=== PATIENT | female | born 1990 ===

== ENCOUNTER 2017-11-11 08:36 | Inpatient (IN) | payer MEDICAID ==
[2017-11-11] MEDS: Lactated Ringer's 1,000 ML IV SCH ×2 (09:00→10:09)
[2017-11-11] MEDS ORDERED: Sodium Citrate/Citric Acid 15 ml Sol PO ONE (09:15)
[2017-11-11] MEDS ORDERED: Sodium Citrate/Citric Acid 15 ml Sol ONE (09:22)
[2017-11-11] MEDS ORDERED: Oxytocin 20 units in LR 2,000 ML IV ONE (09:23)
[2017-11-11] MEDS ORDERED: cefOXitin IV 2 gm in Saline 2 GM/50 ML BAG IVPB ONE (09:23)
[2017-11-11] MEDS ORDERED: cefOXitin 2 GM in Sodium Chloride 0.9% 100 ML IVPB ONE (09:30)
[2017-11-11 09:32] LABS: BASO % 0.6 % (0.0-2.0); EOS % 0.4 % (0.0-4.0); HEMOGLOBIN 12.3 g/dL (11.0-16.0); LYMPH # 2.8 K/uL (1.0-4.3); LYMPH % 31.3 % (20.0-40.0); MEAN CELL VOLUME 83.7 fL (81.0-99.0); MEAN CORPUSCULAR HGB CONC 33.4 g/dL (33.0-37.0); MEAN PLATELET VOLUME 12.4 fL (7.2-11.7); MONO # 0.7 K/uL (0.0-0.8); MONO % 7.8 % (0.0-10.0); NEUT # 5.3 K/uL (1.8-7.0); NEUT % 59.9 % (50.0-75.0); RBC 4.39 Mil/uL (3.80-5.20); RED CELL DISTRIBUTION WIDTH 14.2 % (11.5-14.5); WHITE BLOOD COUNT 8.9 K/uL (4.8-10.8)
[2017-11-11 09:40] LABS: SQUAMOUS EPITHIAL 3 /hpf (0-5); URINE BACTERIA RARE (<OCC); URINE BILIRUBIN NEGATIVE (NEGATIVE); URINE BLOOD NEGATIVE (NEGATIVE); URINE CLARITY Clear (Clear); URINE COLOR Yellow (YELLOW); URINE GLUCOSE (UA) NORMAL (Normal); URINE LEUKOCYTE ESTERASE NEG Leu/uL (Negative); URINE PROTEIN 1+ mg/dL (NEGATIVE); URINE UROBILINOGEN NORMAL mg/dL (0.2-1.0)
[2017-11-11 09:48] LABS: CALCIUM 8.9 mg/dl (8.6-10.4); GFR AFRICAN-AMERICAN > 60; GFR NON-AFRICAN AMERICAN > 60
[2017-11-11 09:56] LABS: ALB/GLOB RATIO 0.9 (1.0-2.1); ALBUMIN 3.6 g/dL (3.5-5.0); ALT/SGPT 11 U/L (9-52); AST/SGOT 56 U/L (14-36); BLOOD UREA NITROGEN 12 mg/dL (7-17)
[2017-11-11] MEDS ORDERED: Morphine 1 mg/ml preservative-free Inj(Duramorph) ONE (11:09)
[2017-11-11] MEDS ORDERED: Oxycodone/Acetaminophen 5/325 mg Tab PO PRN ×2 (12:54)
[2017-11-11] MEDS: Simethicone 80 mg Chewtab PO SCH ×2 (14:53→17:40)
[2017-11-11] MEDS ORDERED: Morphine 4 MG/ML VIAL IV PRN (15:33)
[2017-11-11] MEDS: cefOXitin IV 2 gm in Saline 2 GM in Sodium Chloride 0.9% 100 ML IV SCH (17:43)
--- NOTE | 2017-11-11 22:24 | OP ---
PROCEDURE DATE: 11/11/2017 PREOPERATIVE DIAGNOSIS: Intrauterine at 39 weeks in labor and desires sterilization. POSTOPERATIVE DIAGNOSIS: Intrauterine at 39 weeks in labor and desires sterilization. PROCEDURE: Lower segment section with bilateral tubal ligation using the modified [place] technique. SURGEON: Eren Chery MD. CATCH BASIN CLEANER: Jesse Owens MD. ESTIMATED BLOOD LOSS: 250 mL. COMPLICATIONS: Nil. DESCRIPTION OF PROCEDURE: After the risks, benefits and alternatives of the planned procedures, including but not limited to infection, hemorrhage, deep vein thrombosis, atelectasis, pneumonia, pulmonary embolism, damage to the bladder, damage to the ureter, renal insufficiency, renal failure, wound infection, wound dehiscence, incisional hernia, keloid formation, damage to the large and small intestine, damage to the inferior vena cava and aorta requiring extensive repair, anesthesia complications, electrolyte imbalance, possibility of , fluid overload, cerebral edema, air embolism and other complications that were discussed, but are not listed above, have been explained to the patient and all her questions answered and informed consent was obtained, failure risk of sterilization also discussed. The patient was taken to the operating room in a stable condition. Under suitable level of spinal analgesia, she was prepped and draped in a sterile fashion after having been placed in a supine position. The abdomen was entered through a Pfannenstiel-type incision, carried through the subcutaneous tissues to the fascia, fascia was opened transversely and dissected off the rectus abdominis musculature. The rectus abdominis musculature was then in the midline to remove the parietal peritoneum, which was entered sharply and incised superiorly and inferiorly. The bladder peritoneum was then entered through a curvilinear incision. The surgeon's fingers were inserted into the lower uterine segment to grasp the 's head, which was lying in a right occipital anterior position. The head was easily delivered, nose and mouth was suctioned free of amniotic fluid, and the remainder of the infant was delivered without any difficulty. Cord was doubly clamped and cut and the baby was handed over to the yard driver who were in attendance. Cord blood was collected with Pitocin running, placenta was manually removed. The endometrium was then cleaned free of remaining membranes and clots. The uterine incision was then closed in layers with the first layer being a running interlocking layer using #1 chromic and the second layer being used to imbricate the first layer. Hemostasis was good. The bladder peritoneum was then reapproximated using running suture of 2-0 chromic. Attention was then turned to the tubal ligation. The mid portion of the right fallopian tube was grasped in its mid portion and pulled into a loop. The base of the loop was then ligated using 0 plain suture. Two separate pieces of 0 chromic suture were passed through the mesosalpinx in this end of the loop and the proximal and distal segment of fallopian tube being closed within the loop was individually ligated close . The segment of cord distal to the ligature was resected. It was approximately 3 cm in length. The cut edge of the tubes were then fulgurated using cautery. An identical procedure was repeated on the opposite side. At the end of the procedure, peritoneal cavity was irrigated using copious amounts of saline. The saline was evacuated. The abdomen was then closed in layers with 0 chromic to the parietal peritoneum. Recti muscles were reapproximated using interrupted sutures of 0 chromic. Fascia was reapproximated using 2 separate running sutures of 0 Vicryl to meet in the midline. Subcutaneous tissues were reapproximated using interrupted sutures of 0 chromic and the initial skin incision was reapproximated using 4-0 Vicryl in a subcuticular fashion. Estimated blood loss for the procedure was 250 mL. Pad, needle and instrument counts were correct x2. There were no complications. Eren Chery MD
--- NOTE | 2017-11-11 22:41 | HP ---
HISTORY OF PRESENT ILLNESS: The patient is a 27-year-old female, 2, para 1 with a due date of 11/19/2017 at 39 weeks by 8 days, previous section x1 with contractions since 4 a.m., who is coming in for repeat section. The patient also desires sterilization and had signed tubal ligation consent forms. PAST OBSTETRICAL HISTORY: Unremarkable, significant for a section x1. PAST MEDICAL HISTORY: Unremarkable. SOCIAL HISTORY: She does not smoke or drink. MEDICATIONS: Currently, she is not taking any calcium or Airborne medications. PHYSICAL EXAMINATION: VITAL SIGNS: Her blood pressure is 110/70, pulse is 72, respiratory rate is 20, temperature is 98.8. HEENT: Head, ears, nose, and throat examination are within normal. CHEST: Clear. CARDIAC: Exam reveals normal heart sounds without any murmurs. LUNGS: Clear. BREASTS: Reveal no masses. ABDOMEN: Symphyseal fundal height is 88 cm long, longitudinal lie vertex. heart tones are normal. PELVIC: The patient is 3 cm, 80% effaced, -2 station. ADMITTING DIAGNOSIS: Intrauterine at 39 weeks, previous section x1, in labor, desires sterilization. PLAN: Plan is to perform a lower segment section. Prior to being scheduled for the surgical procedure, the patient underwent an informed consent, discussion and education session lasting approximately 45 minutes during which time I explained her in understandable terms the following, the nature and extent of the disease process, and the nature and the extent of the contemplated operation. I also explained her the risks and potential complications of the operative procedures including but not limited to infection, hemorrhage, deep vein thrombosis, atelectasis, pneumonia, pulmonary embolism, damage to the bladder, damage to the ureter, renal insufficiency, renal failure, wound infection, wound dehiscence, incisional hernia, keloid formation, damage to large and small intestine, damage to the inferior vena cava and aorta requiring extensive repair, anesthesia complications, electrolyte imbalance, possibility of , failure of sterilization, and other complications that were discussed, but are not listed above. They have been explained to the patient and all the questions answered, informed consent was obtained. The patient was given option of alternative method of treatment. We discussed with the patient including the risks and benefits. All the questions from the patient were encouraged, welcomed and answered to her satisfaction. Eren Chery MD [facility] # [id number]
[2017-11-12] MEDS: cefOXitin IV 2 gm in Saline 2 GM in Sodium Chloride 0.9% 100 ML IV SCH ×3 (02:21→19:39)
[2017-11-12 07:56] LABS: BASO % 0.2 % (0.0-2.0); EOS % 0.2 % (0.0-4.0); LYMPH # 1.4 K/uL (1.0-4.3); LYMPH % 11.5 % (20.0-40.0); MEAN CELL VOLUME 84.3 fL (81.0-99.0); MEAN CORPUSCULAR HEMOGLOBIN 27.8 pg (27.0-31.0); MONO # 0.8 K/uL (0.0-0.8); MONO % 6.3 % (0.0-10.0); NEUT # 9.9 K/uL (1.8-7.0); NEUT % 81.8 % (50.0-75.0); RBC 3.36 Mil/uL (3.80-5.20); RED CELL DISTRIBUTION WIDTH 14.8 % (11.5-14.5); WHITE BLOOD COUNT 12.1 K/uL (4.8-10.8)
[2017-11-12 08:10] LABS: HEMOGLOBIN 9.3 g/dL (11.0-16.0)
[2017-11-12] MEDS: Simethicone 80 mg Chewtab PO SCH ×4 (10:23→21:43)
[2017-11-12] MEDS: Enoxaparin 40 mg Syringe SC SCH (10:25)
[2017-11-12] MEDS ORDERED: Bisacodyl 5mg EC Tab PO ONE (12:55)
--- NOTE | 2017-11-12 17:39 | PN ---
DATE: SUBJECTIVE: The patient has no complaints. OBJECTIVE: VITAL SIGNS: Stable. She is afebrile. ABDOMEN: Soft. Bowel sounds are present. Incision is clean and intact. EXTREMITIES: Nontender with no evidence of DVTs. CHEST: Clear. CARDIAC: Reveals normal heart sounds without any murmurs. LUNGS: Clear. ASSESSMENT: The patient is status post section day #1. PLAN: Ambulate the patient and advance diet as tolerated. Eren Chery MD
--- NOTE | 2017-11-13 08:31 | OBPPN ---
Datetime: 11/13/2017 08:24 PP Pain Prov: Within normal limits PP Nausea Prov: Denies PP Flatus Prov: Yes PP BM Prov: No PP Breasts Prov: Normal PP Heart Prov: Normal PP Lungs Prov: Normal PP Abdomen/Uterus Prov: Normal PP Lochia Prov: Normal PP Vulva/Perineum Prov: Normal PP CVA Tenderness Prov: Normal PP Extremities Prov: Normal PP C/S Incision Prov: Normal PP Progress Prov: Normal PP Comments Phys Exam Prov: incision: C/D/i PP Impression Prov: Normal progression PP Plan Prov: Continue present management PP Progress Note Prov: PT doing well. Currently no complaints at this time. Breast feeding, ambulati ng, passing flatus. Pain 4/10 controlled with motrin. [id number] s/p RCS _ BTL POD #2. 1) VSS:afebrile 2) Encouraged ambulation. 3) Pain controlled with motrin. 4) Routine post op care IP PP Procedures: None Vital Signs Provider PP: Reviewed
[2017-11-13] MEDS: Simethicone 80 mg Chewtab PO SCH ×4 (09:18→21:28)
[2017-11-13] MEDS: Enoxaparin 40 mg Syringe SC SCH (09:19)
[2017-11-14 07:46] VITALS: BP 113/73; PULSE 102; TEMP 98.4; O2SAT 100
[2017-11-14] MEDS: Enoxaparin 40 mg Syringe SC SCH (10:03)
[2017-11-14] MEDS: Simethicone 80 mg Chewtab PO SCH (10:03)
--- NOTE | 2017-11-14 10:07 | OBDCSUM ---
Datetime: 11/14/2017 10:02 Discharged to, Provider: Home Follow up at, Provider: 1 week PP Disch Instr Activity: Normal activity Disch Instr Diet: Regular Discharge Instructions, Provider: Routine instructions given Discharge Diagnosis, Provider: Term Delivered Discharge Time: 11/14/2017 10:03 Disch Referrals: None Contraception discussed, Prov: Yes Disch Activity Restrictions: No exercising; No lifting; No driving Discharge Comment, Provider: PT doing well. No complaints. Tolerating PO diet. ambuating. Passing fl atus, +BM. . Pain /. Pain controlled with motrin. PE: incison C/D/I, fundus firm above the umbilicus 26 s/p RCS POD#3. 1) VSS. Afebrile. 2) breast feeding. 3) Pain: controlled with motrin. 4) Discharge home. Datetime: 11/14/2017 07:57 Discharged to, Provider: Home Follow up at, Provider: Dr Mead Disch Instr Activity: Normal activity; May Shower Disch Instr Diet: Regular Discharge Diet restrict Prov: none Discharge Time: 11/14/2017 11:00 Follow up in weeks, Provider: one week Disch Referrals: None Disch Activity Restrictions: No lifting; Minimize stair-climbing; No sexual activity; Nothing in vag bess - [place], tampons, douche
[2017-11-14 15:19] VITALS: RESP 18
== END 2017-11-14 10:45 | disposition home or self-care (01) | DRG 371 ==
LOC: C.EROB 08:36 → C.4D 08:54 → C.4M 14:35
PROVIDERS: ADMIT Obstetrics & Gynecology Reproductive Endocrinology; ATTEND Obstetrics & Gynecology Reproductive Endocrinology
PROC: 10D00Z1 Extraction of Products of Conception, Low, Open Approach (ICD-10-PCS; principal; 2017-11-11)
PROC: 0UB70ZZ Excision of Bilateral Fallopian Tubes, Open Approach (ICD-10-PCS; 2017-11-11)
DX: O34.211 Maternal care for low transverse scar from previous cesarean delivery (principal); Z30.2 Encounter for sterilization; Z3A.39 39 weeks gestation of pregnancy; Z37.0 Single live birth